=== PATIENT | female | born 1995 | race Caucasian/White ===

== ENCOUNTER 2024-09-16 12:54 | Emergency (ER) | payer OTHER, SELFPAY ==
[2024-09-16 13:00] VITALS: BP 131/97; PULSE 80; RESP 14; TEMP 36.9; O2SAT 100; BMI 31.9
--- NOTE | 2024-09-16 13:10 | ED_ITS ---
HPI - Female Genitourinary <Clarissa Calvert PA-C - Last Filed: 09/16/24 17:27> General Chief complaint: Vaginal Bleeding Stated complaint: Check IUD Time Seen by Provider: 09/16/24 13:08 Mode of arrival: Ambulatory History of Present Illness HPI Narrative: Ms. Bates is a very pleasant 28-year-old female, active duty [employer], who presents to the emergency department for pelvic pain and bleeding x 1 week, worse over the last 3 days. Patient states she has had Nessa IUD for 3 years, it was placed in November 2021 in [place]. States that prior to that she had Mirena IUD which became malpositioned and had to be removed. States that the pain she has been experiencing feel similar to when she had a malpositioned IUD but the pain now is much more severe. She describes a severe cramping pain in the center of her lower pelvis that is worse with urinating/bearing down and with movement in certain positions. She also noticed some light but bright red vaginal spotting that is occurring 2 weeks earlier than her normal menstrual cycle. She does not currently have a PCP or OBGYN in [place], she sees the primary doctor on [facility]. She denies any concern for STD, no pain with sexual intercourse, no abnormal vaginal discharge or burning, no chest pain shortness of breath upper abdominal pain nausea vomiting diarrhea constipation fevers chills or flu-like symptoms. She is not interested in any pain medication. Related Data Previous Rx's Medication Instructions Recorded nitrofurantoin 100 mg PO Q12H 5 days #10 caps 09/16/24 monohydrate/macrocrystals 100 mg capsule (Macrobid) Allergies Allergy/AdvReac Type Severity Reaction Status Date / Time No Known Drug Allergies Allergy Verified 09/16/24 13:00 Review of Systems <Clarissa Calvert PA-C - Last Filed: 09/16/24 17:27> Review of Systems ROS Unobtainable: All systems reviewed & are unremarkable except as noted in HPI and below Exam <Clarissa Calvert PA-C - Last Filed: 09/16/24 17:27> Narrative Exam Narrative: GENERAL: 28 year old patient appears stated age. Well-developed patient, in no acute distress. HEAD: Atraumatic. Normocephalic. CARDIOVASCULAR: Regular rate and rhythm. RESPIRATORY: ?Nonlabored respirations. ?Speaking in clear, full sentences. ?Clear to auscultation. Breath sounds equal bilaterally. No wheezes, rales, or rhonchi. ? GASTROINTESTINAL: Abdomen soft, non-tender, nondistended. : Patient gave verbal consent for pelvic exam. Female nurse core oven tender was present for exam. Patient had normal external genitalia. Speculum exam revealed scant dark bloody discharge at the cervical os which was removed with very faint visualization of potential tips of IUD brown strings. There was no tenderness to palpation on bimanual exam, no cervical motion tenderness or adnexal tenderness. NEURO: AOx3. ?Clear speech. ?Moves all 4 extremities appropriately. SKIN: No rash or erythema of visible areas Initial Vital Signs Initial Vital Signs: Vital Signs Temperature 98.4 F 09/16/24 13:00 Pulse Rate 80 09/16/24 13:00 Respiratory Rate 14 09/16/24 13:00 Blood Pressure 131/97 H 09/16/24 13:00 Pulse Oximetry 100 09/16/24 13:00 Oxygen Delivery Method Room Air 09/16/24 13:00 <Sumeet Mishra MD - Last Filed: 09/16/24 17:30> Initial Vital Signs Initial Vital Signs: Vital Signs Temperature 98.4 F 09/16/24 13:00 Pulse Rate 80 09/16/24 13:00 Respiratory Rate 14 09/16/24 13:00 Blood Pressure 131/97 H 09/16/24 13:00 Pulse Oximetry 100 09/16/24 13:00 Oxygen Delivery Method Room Air 09/16/24 13:00 Course <Clarissa Calvert PA-C - Last Filed: 09/16/24 17:27> Orders Ordered: ED Orders 09/16/24 13:06 Urine Culture Stat Urine Culture Stat Urine Microscopic Stat 09/16/24 13:21 US pelvic complete Stat 09/16/24 16:25 Chlamydia/Gonoc/Myco Genital Stat Genital Culture Stat Wet Prep Tric BV Alyssa Stat Vital Signs Vital signs: Vital Signs - 8 hr 09/16/24 13:00 Temperature 98.4 F Pulse Rate 80 Respiratory Rate 14 Blood Pressure 131/97 H Pulse Oximetry 100 Oxygen Delivery Method Room Air <Sumeet Mishra MD - Last Filed: 09/16/24 17:30> Orders Ordered: ED Orders 09/16/24 13:06 Urine Culture Stat Urine Culture Stat Urine Microscopic Stat 09/16/24 13:21 US pelvic complete Stat 09/16/24 16:25 Chlamydia/Gonoc/Myco Genital Stat Genital Culture Stat Wet Prep Tric BV Alyssa Stat Vital Signs Vital signs: Vital Signs - 8 hr 09/16/24 13:00 Temperature 98.4 F Pulse Rate 80 Respiratory Rate 14 Blood Pressure 131/97 H Pulse Oximetry 100 Oxygen Delivery Method Room Air MDM - Female Genitourinary <Clarissa Calvert PA-C - Last Filed: 09/16/24 17:27> Medical Records Medical records narrative: None available Lab Data Labs: Lab Results 09/16/24 Range/Units 13:06 Urine RBC 10-30/hpf H (0-5/HPF) Urine WBC 5-10/hpf H (0-5/HPF) Ur Squamous Epith Cells 1-5 /hpf (0-5/HPF) Urine Bacteria None seen (None) Ur Culture Indicated? Specimen cultured Vol Urine Centrifuged 10ml (spun) Point of Care Testing Test Results Negative Urine Dip Bedside Urine Glucose Negative Bedside Urine Bilirubin - Negative Bedside Urine Ketone - Negative Urine Specific [place] 1.025 Bedside Urine Occult Blood +++ Bedside Urine pH 6.0 Bedside Urine Protein +/- 15 Bedside Urine Urobilinogen - Negative Bedside Urine Nitrite - Negative Bedside Urine Leukocytes + 70 Esterase [facility] Narrative Medical decision making narrative: 28-year-old female, active [employer] [place], who presents to the emergency department for pelvic pain and bleeding x 1 week, worse over the last 3 days. Differential diagnosis includes but is not limited to malposition of IUD, menstrual cycle, ovarian cyst, uterine fibroid, cystitis, STD, PID, etc. On exam the patient is in no acute distress, nontoxic appearing, vital signs appropriate. Her abdomen is soft and nontender. She has normal external genitalia, no cervical motion tenderness or adnexal tenderness on bimanual examination, no abnormal discharge or heavy bleeding. Pelvic ultrasound was obtained in addition to urinalysis. UA reveals 10-30 urine RBCs, 5-10 urine WBCs, 1-5 squamous cells. Suspect possible contamination however given patient's lower pelvic pain, discussed treatment of acute UTI while urine culture is pending. Pelvic ultrasound reveals no sonographic signs of ovarian torsion. No acute sonographic abnormality. Intrauterine devices in expected position. Patient continues to have benign abdominal exam. Wet prep was negative for BV, trich or yeast. Urine culture, genital culture and gonorrhea/chlamydia swab are pending at this time, patient declines the need for empiric treatment of STDs, we will treat with Macrobid for potential cystitis. Patient's [place] PCP has set up an appointment with OBGYN next Thursday. Discussed strict ED return precautions with the patient. She verbalized understanding of all information is agreeable with the plan, she is stable for discharge home. <Sumeet Mishra MD - Last Filed: 09/16/24 17:30> Lab Data Labs: Lab Results 09/16/24 Range/Units 13:06 Urine RBC 10-30/hpf H (0-5/HPF) Urine WBC 5-10/hpf H (0-5/HPF) Ur Squamous Epith Cells 1-5 /hpf (0-5/HPF) Urine Bacteria None seen (None) Ur Culture Indicated? Specimen cultured Vol Urine Centrifuged 10ml (spun) Point of Care Testing Test Results Negative Urine Dip Bedside Urine Glucose Negative Bedside Urine Bilirubin - Negative Bedside Urine Ketone - Negative Urine Specific [place] 1.025 Bedside Urine Occult Blood +++ Bedside Urine pH 6.0 Bedside Urine Protein +/- 15 Bedside Urine Urobilinogen - Negative Bedside Urine Nitrite - Negative Bedside Urine Leukocytes + 70 Esterase Discharge Plan Departure Patient Disposition: Home Clinical Impression: Vaginal spotting, Pelvic cramping Instructions: DI for Vaginal Bleeding Activity Restrictions/Additional Instructions: Dear Ms. MontesKay, Thank you for coming to the emergency department. Today you were evaluated for abnormal vaginal spotting and cramping. We obtain a pelvic ultrasound which did not show any abnormalities, and your IUD is in the correct position. We checked urine test, urine culture and vaginal swabs. Your urinalysis did reveal white blood cells concerning for potential infection versus contamination however given your lower abdominal pain we will treat with antibiotics while the urine culture is pending. You will be called in the next 2-3 days if your urine culture, genital culture or other swabs come back positive for any infections that require treatment. Please follow [place] care [place] for further evaluation, but return to the emergency department if you develop any new symptoms or concerns. Please take Ibuprofen (Motrin/Advil) or Acetaminophen (Tylenol) for pain. These are available over the counter. You may take Ibuprofen 600 mg every 8 hours with food for pain. You may also take Acetaminophen 650 mg every 4-6 hours for pain. Do not exceed 3000 mg of Tylenol a day as this can cause liver damage. Do not drink alcohol with either of these medications. Please follow up with your primary care doctor within the next 2-3 days for ER follow-up. (If you do not have a PCP you can call [phone]. ?to schedule an appointment with an [facility] Primary Care Provider) IF YOU DEVELOP ANY NEW OR WORSENING SYMPTOMS, RETURN TO THE ER! Please read the attached instructions, they highlight more specific treatments and interventions for you at home. Thank you for letting me participate in your care, Clarissa Calvert PA-C Prescriptions: New nitrofurantoin monohyd/m-cryst [Macrobid] 100 mg capsule 100 mg PO Q12H 5 Days Qty: 10 0RF Rx Instructions: must administer with a meal/food Referrals: ProviderMary Beth [Primary Care Provider] - Stand Alone Forms: Patient Portal/API/Survey ED Sign-out <Sumeet Mishra MD - Last Filed: 09/16/24 17:30> Cosign ED Attending Cosjennyature Attestation: I was immediately available in the department for consultation. ?This documentation has been reviewed and I agree with assessment and plan. Supervised by Sumeet Mishra MD
--- NOTE | 2024-09-16 13:19 | PC.NURSE ---
Pt having pelvic pain and bleeding,she is concerned because she is not suppose to start her period yet. pts pain increases at the end of urination. Pt has IUD in place,she is concerned that there is something wrong with it.
--- NOTE | 2024-09-16 13:21 | DI.US.S_ITS ---
PROCEDURE: US PELVIC COMPLETE INDICATIONS: pelvic pain, bleeding, IUD x 3 years TECHNIQUE: Real-time scanning was performed of the pelvic organs, with image documentation. Additional endovaginal scanning was necessary due to incomplete visualization of the adnexal and endometrial structures by transabdominal scanning. Color and spectral Doppler evaluation of the ovaries was performed in the setting of pelvic pain. COMPARISON: None. FINDINGS: Uterus: Uterus is anteverted and normal in size at 6.9 x 4.8 x 2.9 cm. The myometrium is homogeneous. The endometrium measures 2.9 mm combined thickness. Intrauterine device is seen in expected position. Ovaries: The right ovary measures 3.1 x 3.5 x 1.6 cm, with a calculated ovarian volume of 9.1 cc. The left ovary measures 3.1 x 2.9 x 1.5 cm, with a calculated ovarian volume of 7.1 cc. The ovaries have a normal sonographic appearance. Less than 12 follicles can be seen in each ovary. No adnexal masses are seen. Arterial and venous Doppler flow is demonstrated to each ovary. Other: No pathologic free abdominal or pelvic fluid. IMPRESSION: 1. No sonographic signs of ovarian torsion. No acute sonographic abnormality. 2. Intrauterine device in expected position. Approved by: Aydin Mccarthy M.D. on 09/16/2024 at 17:14
[2024-09-16 13:37] LABS: Urine Volume 10mL (spun)
[2024-09-16 13:39] LABS: Bacteria Urine None Seen; Culture Indicated Urine Specimen Cultured; RBC Urine 10-30/HPF (0-5/HPF); Squamous Epithelial Cell Urine 1-5 /HPF (0-5/HPF); WBC Urine 5-10/HPF (0-5/HPF)
--- NOTE | 2024-09-16 16:32 | PC.NURSE ---
pelvic performed by provider and Charge nurse and not this RN. Provider collected all samples. Charge nurse walked all samples to the lab.
[2024-09-16 17:31] VITALS: BP 128/68; PULSE 78; RESP 18; TEMP 36.6; O2SAT 97
[2024-09-21 12:36] LABS: Chlamydia trachomatis Negative (Negative); Mycoplasma genitalium Negative (Negative); Neisseria gonorrhoeae Negative (Negative)
== END 2024-09-16 17:31 | disposition home or self-care (01) ==
PROVIDERS: Emergency Provider Physician Assistant
DX: N93.9 Abnormal uterine and vaginal bleeding, unspecified (principal); R10.2 Pelvic and perineal pain; Z97.5 Presence of (intrauterine) contraceptive device
CPT/HCPCS: 76830; 76856; 81003; 81015; 81025; 87070; 87086; 87205; 87210; 87491; 87563; 87591; 93975; 99282; 99284